=== PATIENT | male | born 1965 | race Caucasian/White ===

== ENCOUNTER 2022-01-09 10:46 | Inpatient (IN) ==
[2022-01-09] MEDS ORDERED: CeFAZolin Syr 2,000MG/20 ML 2,000 MG/20 ML SYRINGE IVPB ONE (11:07)
[2022-01-09] MEDS ORDERED: Ringers Solution, Lactated 1,000 ML IVC SCH (11:15)
[2022-01-09] MEDS ORDERED: Ondansetron 4 MG/2 ML VIAL IVP PRN ×5 (11:32→20:35)
[2022-01-09] MEDS ORDERED: *HR* HYDROmorphone PF 0.5 MG/0.5 ML SYRINGE IVP PRN (11:32)
[2022-01-09] MEDS ORDERED: Heparin 1,000 UNITS/500 mL 1,000 ML ONE (11:34)
[2022-01-09] MEDS ORDERED: Protamine Sulfate 50 MG/5 ML VIAL IVP ONE ×4 (11:34→17:42)
[2022-01-09] MEDS ORDERED: Bupivacaine-MPF 0.25% 10 ML VIAL ONE ×3 (11:34→17:57)
[2022-01-09] MEDS ORDERED: Famotidine 20 MG TABLET PO ONE (12:00)
[2022-01-09] MEDS ORDERED: Vancomycin 1,250 MG/262.5 ML IV.SOLN IVPB ONE (12:00)
[2022-01-09] MEDS ORDERED: *HR* FentaNYL (PF) 100 MCG/2 ML VIAL ONE ×2 (12:14→18:10)
[2022-01-09] MEDS ORDERED: *HR* Propofol 200 MG/20 ML VIAL IVP ONE ×2 (12:15→17:51)
[2022-01-09] MEDS ORDERED: Lidocaine -MPF 2% 5 ML VIAL ONE (12:15)
[2022-01-09] MEDS ORDERED: *HR* Succinylcholine 200 MG/10 ML VIAL IVP ONE (12:16)
[2022-01-09] MEDS ORDERED: *HR* Rocuronium Bromide 50 MG/5 ML VIAL ONE ×4 (12:16→17:38)
[2022-01-09] MEDS ORDERED: Ondansetron 4 MG/2 ML VIAL ONE ×2 (12:17→18:20)
[2022-01-09] MEDS ORDERED: Heparin 1,000 UNITS/500 mL 0 ML ONE ×2 (12:17→17:42)
[2022-01-09] MEDS ORDERED: EPHEDrine 50 MG/ML VIAL ONE (12:19)
[2022-01-09] MEDS ORDERED: *HR* Phenylephrine 10 MG/ML VIAL ONE (12:20)
[2022-01-09] MEDS ORDERED: *HR* Remifentanil 1 MG VIAL IVP ONE (12:25)
[2022-01-09] MEDS ORDERED: Lidocaine HCL 4 ML Topical Solution (Laryng-O-Jet Kit Sterile Pak) TP ONE (12:27)
[2022-01-09] MEDS ORDERED: NiCARdipine 2.5 MG/10 ML Syringe IVPB ONE (12:28)
[2022-01-09] MEDS ORDERED: Vancomycin 1,000 MG, Sodium Chloride IRRigation 1,000 ML IR ONE (12:30)
[2022-01-09] MEDS ORDERED: *HR* Heparin 5,000 UNIT/ML VIAL ONE (14:38)
[2022-01-09] MEDS ORDERED: Ketamine HCL *QUVA* 50mg (1mL) SYRINGE ONE (15:05)
[2022-01-09] MEDS ORDERED: Sugammadex Sodium 200 MG/2 ML VIAL IV ONE (15:06)
[2022-01-09] MEDS ORDERED: *HR* Labetalol 20 MG/4 ML SYRINGE IVP ONE (15:18)
[2022-01-09] MEDS ORDERED: 0.9 % Sodium Chloride 1,000 ML IVC SCH ×2 (16:29→20:35)
[2022-01-09] MEDS ORDERED: Acetaminophen 325 MG TABLET PO PRN ×2 (16:29→20:35)
[2022-01-09] MEDS ORDERED: *HR* Labetalol 20 MG/4 ML SYRINGE IVP PRN ×2 (16:29→20:35)
[2022-01-09] MEDS ORDERED: *HR* OxyCODONE Immed Rel 5 MG TABLET PO PRN ×2 (16:29→20:35)
[2022-01-09] MEDS ORDERED: *HR* HYDROcodone/Acet 5/325 mg TABLET PO PRN ×2 (16:29→20:35)
[2022-01-09] MEDS ORDERED: Naloxone 0.4 MG/ML INJ IVP PRN ×2 (16:29→20:35)
[2022-01-09] MEDS ORDERED: Iopamidol - 370 500 ML MLS IVP ONE ×2 (17:15→20:35)
[2022-01-09 17:18] LABS: ABG Base Excess -2 mEq/L (-2 to 3); ABG HCO3 21 mEq/L (21-27); ABG Oxygen Saturation 94 % (95-98); ABG PCO2 30 mmHg (35-45); ABG PH 7.46 pH Units (7.32-7.45); ABG PO2 67 mmHg (85-104); ABG TCO2 22 mEq/L (20-26)
[2022-01-09] MEDS ORDERED: FentaNYL (PF) 1,000 MCG/100 ML IV.SOLN IVC SCH (17:30)
[2022-01-09] MEDS ORDERED: *HR* Midazolam HCl 5 MG/5 ML VIAL IVP ONE (17:40)
[2022-01-09] MEDS ORDERED: Vancomycin 1,000 MG VIAL ONE (17:43)
[2022-01-09 17:52] LABS: VBG Ionized Calcium 0.88 mmol/L (1.15-1.35)
[2022-01-09] MEDS ORDERED: *HR* Metoprolol 5 MG/5 ML VIAL IVP SCH (18:00)
[2022-01-09] MEDS ORDERED: CeFAZolin 2 GM/120 ML BAG IVPB SCH (18:00)
[2022-01-09] MEDS ORDERED: *HR* FentaNYL (PF) 100 MCG/2 ML VIAL IVP PRN (19:08)
[2022-01-09] MEDS: *HR* Metoprolol 5 MG/5 ML VIAL IVP SCH (23:36)
[2022-01-10] MEDS ORDERED: Vancomycin 1,250 MG/262.5 ML IV.SOLN IVPB ONE ×2 (01:00)
[2022-01-10] MEDS ORDERED: CeFAZolin 2 GM/120 ML BAG IVPB SCH (02:00)
[2022-01-10] MEDS: *HR* Metoprolol 5 MG/5 ML VIAL IVP SCH (05:03)
[2022-01-10] MEDS ORDERED: *HR* Heparin 5,000 UNIT/ML VIAL SQ SCH ×2 (06:00)
[2022-01-10 07:42] LABS: Mean Corpuscular HGB Conc 33.1 g/dL (31.6-35.5); Mean Corpuscular Hemoglobin 29.8 pg (28.0-33.3); Mean Platelet Volume 9.5 fL (9.4-12.4); Platelet Count 228 K/mcL (140-400); Red Blood Count 3.56 M/mcL (4.19-5.50); Red Cell Distribution Width 12.2 % (11.5-14.5)
[2022-01-10 07:52] LABS: Hemoglobin 10.6 g/dL (12.9-16.9); Mean Corpuscular Volume 89.9 fL (83.0-100.0); White Blood Count 16.2 K/mcL (4.3-11.1)
[2022-01-10 08:19] LABS: VBG PCO2 < 13 mmHg (41-51); VBG PO2 246 mmHg (25-50)
[2022-01-10] MEDS ORDERED: Aspirin 81 MG TAB.CHEW PO SCH ×2 (09:00)
[2022-01-10] MEDS ORDERED: Aspirin Enteric Coated 81 MG Tablet PO SCH (09:00)
[2022-01-10 09:46] LABS: BUN/Creatinine Ratio 21 (6-26); Blood Urea Nitrogen 16 mg/dL (6-20); Calcium 8.5 mg/dL (8.6-10.3); Carbon Dioxide 23 mEq/L (23-29); Chloride 104 mEq/L (98-107); Glucose 122 mg/dL (70-105); Osmolality,Calculated 282 (280-300); Potassium 4.1 mEq/L (3.5-5.1); Sodium 135 mEq/L (136-145); eGFR For African Americans > 60 (> 60); eGFR For Non-African Americans > 60 (> 60)
[2022-01-10 10:25] VITALS: O2SAT 97
[2022-01-10 10:59] VITALS: BP 124/59; TEMP 98.7
[2022-01-10 13:54] VITALS: PULSE 71
== END 2022-01-10 13:00 | disposition home or self-care (01) | DRG 24 ==
LOC: SAMDAY 10:46 → 2NNU 12:50
PROVIDERS: ADMIT Surgery; ATTEND Surgery